=== PATIENT | female | born 1970 | race Caucasian/White ===

== ENCOUNTER 2017-10-26 19:08 | Observation (INO) ==
[2017-10-26] MEDS ORDERED: Morphine Inj 4 MG/ML Vial IM ONE (19:27)
--- NOTE | 2017-10-26 19:46 | ED ---
HPI General Chief complaint: Urogenital-Female Stated complaint: Abd/rectal pain Time Seen by Provider: 10/26/17 19:23 History of Present Illness HPI Narrative: 47 yo F with vaginal and rectal pain s/p sling procedure today with SOFTWARE DESIGN ENGINEER - DR. Gray She had pain after the procedure and was seen in the office where she was given a lo for urinary retention. She continued to have pain and was sent to the ER for evaluation and treatment. Related Data Home Medications Medication Instructions Recorded Confirmed bupropion HCl [Wellbutrin SR] 150 mg PO BID 10/18/17 10/26/17 estradiol [Estrace] 1 mg PO DAILY 10/18/17 10/26/17 losartan 25 mg PO DAILY 10/18/17 10/26/17 spironolactone 25 mg PO BID 10/18/17 10/26/17 Previous Rx's Medication Instructions Recorded hydrocodone-acetaminophen 1 tab PO Q4H PRN #16 tab 10/26/17 Allergies Allergy/AdvReac Type Severity Reaction Status Date / Time penicillin G Allergy Severe Anaphylaxis Verified 10/26/17 19:20 Sulfa (Sulfonamide Allergy Severe hives and Verified 10/26/17 19:20 Antibiotics) swelling Review of Systems Except as stated in HPI: all other systems reviewed are negative [facility] Social History Social History Substance History: No History of Abuse Smoking Status: Former smoker Tobacco Type: Cigarettes How Often Do You Have a Drink Containing Alcohol: Monthly or less Recent Travel in [facility] within the Last 8 Weeks: No Recent Out of Country Travel within the Last 8 Weeks: No Immunization History Tetanus Immunization: >5 Years Hx Influenza Vaccine This Season: No Exam Narrative Exam Narrative: GENERAL: 47-year-old female in moderate distress secondary to pain SKIN: Focused skin assessment warm/dry. HEAD: Atraumatic. Normocephalic. EYES: Pupils equal and round. No scleral icterus. No injection or drainage. ENT: No nasal bleeding or discharge. Mucous membranes pink and moist. NECK: Trachea midline. No JVD. CARDIOVASCULAR: Regular rate and rhythm. No murmur appreciated. RESPIRATORY: No accessory muscle use. Clear to auscultation. Breath sounds equal bilaterally. GASTROINTESTINAL: Abdomen soft, positive supra pubic tenderness. Course Initial Documented Vital Signs Pulse Rate 64 10/26/17 19:13 Respiratory Rate 20 10/26/17 19:13 Blood Pressure 159/83 H 10/26/17 19:13 Pulse Oximetry 98 10/26/17 19:13 Last Documented Vital Signs Pulse Rate 64 10/26/17 19:13 Respiratory Rate 15 10/26/17 20:43 Blood Pressure 159/83 H 10/26/17 19:13 Pulse Oximetry 98 10/26/17 19:13 Medical Decision Making MDM Narrative Medical decision making narrative: Patient was seen and evaluated in the emergency department. SOFTWARE DESIGN ENGINEER was consulted and Dr. Burch, conditioner tumbler for Dr Gray will admit the patient for observation overnight. Discharge Plan Discharge Disposition Patient Disposition: 30 Still Patient Discharge Condition Condition: Stable Discharge Details Diagnosis: Post-op pain Physicians Team ED Provider: Germain Reyes Primary Care Provider: NON STAFF,PROVIDER Attending Provider: Freddie Burch Status ED Status: Admitted Observation Patient
[2017-10-26] MEDS ORDERED: Ibuprofen 600 MG Tablet PO PRN (19:52)
[2017-10-26] MEDS ORDERED: Morphine Inj 4 MG/ML Vial IV.PUSH PRN (19:55)
--- NOTE | 2017-10-26 20:04 | P.OBGPN ---
Received call from ED MD stating that pt of Dr. Oates had arrived per her recommendations due to concerns for post operative pain, pt has [place] in due to urinary retention after A&P repair today per Dr. Oates. Spoke to Dr. Oates, plan is for observation, pain control and reassessment by her in the AM. No imaging ordered as pt at this time low concern for complication, will order AM CBC.
[2017-10-26] MEDS: Docusate Sodium 100 MG Capsule PO SCH (22:42)
[2017-10-27 07:44] LABS: Baso % (Auto) 0.4 % (0.0-2.0); Eos # (Auto) 0.1 th/mm3 (0.0-0.4); Hematocrit 36.3 % (35.0-46.0); Hemoglobin 12.1 gm/dL (11.6-15.3); Lymph # (Auto) 2.1 th/mm3 (1.0-4.8); Mean Corpuscular HGB Conc 33.4 % (32.0-36.0); Mean Corpuscular Hemoglobin 26.2 pg (27.0-34.0); Mean Corpuscular Volume 78.5 fL (80.0-100.0); Mean Platelet Volume 9.2 fL (7.0-11.0); Mono # (Auto) 0.7 th/mm3 (0.0-0.9); Mono % (Auto) 7.6 % (0.0-8.0); Neut # (Auto) 6.2 th/mm3 (1.8-7.7); Platelet Count 231 th/mm3 (150-450); Red Blood Count 4.63 mil/mm3 (4.00-5.30); Red Cell Distribution Width 13.8 % (11.6-17.2); White Blood Count 9.1 th/mm3 (4.0-11.0)
[2017-10-27] MEDS: Docusate Sodium 100 MG Capsule PO SCH (08:24)
[2017-10-27 09:10] VITALS: BP 116/78; PULSE 70; RESP 18; TEMP 98.2; O2SAT 98
--- NOTE | 2017-10-27 09:17 | P.PNOB ---
Assessment and Plan - Postoperative Postoperative day: 1 Postoperative status: doing well Postoperative plan: routine post-op care, see orders (will start flomax and antibiotic and send home with catheter until Monday) - Time Spent With Patient Total time spent is greater than 50% in coordination of care (as documented) at patient's floor/unit and/or counseling patient: Subjective Interval history: 47 yo swf 24 hours post unremarkable TOT with solyx, cystoscopy and A/P repair passed voiding trial in step down and discharged home. Came to office at 5:15 with urinary retention and lo placed. Initially pain resolved but resumed pain to 10/10 at home and returned to ED. No fever, N,V. Feels like she needs to evacuate bowels. Urine in lo clear. No issues with pain medications of which I am aware Has a psych history and currently on wellbutrin only Calm this am and states 4/10 and painful to lie flat. Subjective: patient reports feeling better Physical Exam Vital signs: Temp Pulse Resp BP Pulse Ox 98.2 F 70 18 116/78 98 10/27/17 09:08 10/27/17 09:08 10/27/17 09:08 10/27/17 09:08 10/27/17 09:08 - Constitutional no acute distress - Detailed Abdominal Exam Comments: abdomen soft. No CVAT perineum minimal bright red staining on pad has no packing urine clear and copious ext NT vault exam reveals no hematoma and nontender rectal exam also shows no mass, hematoma and no stool tolerated well Results - Labs CBC & Chem 7: 10/27/17 07:05 Labs: Laboratory Results - last 24 hr 10/27/17 07:05 WBC 9.1 RBC 4.63 Hgb 12.1 Hct 36.3 MCV 78.5 L MCH 26.2 L MCHC 33.4 RDW 13.8 Plt Count 231 MPV 9.2 Neut % (Auto) 68.0 Lymph % (Auto) 23.0 Addison % (Auto) 7.6 Eos % (Auto) 1.0 Baso % (Auto) 0.4 Neut # (Auto) 6.2 Lymph # (Auto) 2.1 Addison # (Auto) 0.7 Eos # (Auto) 0.1 Baso # (Auto) 0.0 WBC Differential . Differential Comment Auto diff final
== END 2017-10-27 10:41 | disposition home or self-care (01) ==
LOC: NEPC 19:08 → NEDA 19:08 → NEPGCP 19:08
PROVIDERS: ADMIT Obstetrics & Gynecology; ATTEND Obstetrics & Gynecology